=== PATIENT | female | born 1960 | race Caucasian/White ===

== ENCOUNTER → 2018-02-10 | Outpatient (CLI) | payer OTHER ==
[2018-02-10 09:52] LABS: ALBUMIN 3.8 GM/DL (3.2-5.2); ALBUMIN/GLOBULIN RATIO 1.03 (1.00-1.93); ALKALINE PHOSPHATASE 117 U/L (45-117); ALT/SGPT 63 U/L (12-78); ANION GAP 6 MEQ/L (8-16); AST/SGOT 41 U/L (7-37); BILIRUBIN,TOTAL 0.5 MG/DL (0.2-1.0); BLOOD UREA NITROGEN 23 MG/DL (7-18); CARBON DIOXIDE LEVEL 28 MEQ/L (21-32); CHLORIDE LEVEL 106 MEQ/L (98-107); CHOLESTEROL LEVEL 221 MG/DL (<200); CHOLESTEROL RISK RATIO 3.112 (<5); CREATININE FOR GFR 0.89 MG/DL (0.55-1.30); GLOMERULAR FILTRATION RATE > 60.0 (>51); GLUCOSE, FASTING 95 MG/DL (70-100); HDL CHOLESTEROL 71 MG/DL (>40); LDL CHOLESTEROL 131.4 MG/DL (<100); NON-HDL-C 150 MG/DL; POTASSIUM SERUM 4.9 MEQ/L (3.5-5.1); SODIUM LEVEL 140 MEQ/L (136-145); TOTAL PROTEIN 7.5 GM/DL (6.4-8.2); TRIGLYCERIDES LEVEL 93 MG/DL (<150)
== END ==
LOC: M WUC 08:25
DX: E78.5 Hyperlipidemia, unspecified (principal); I10 Essential (primary) hypertension
CPT/HCPCS: 80053

== ENCOUNTER → 2018-08-13 | Outpatient (CLI) | payer OTHER ==
[2018-08-13 13:37] LABS: ALBUMIN/GLOBULIN RATIO 1.18 (1.00-1.93); ALKALINE PHOSPHATASE 89 U/L (45-117); ALT/SGPT 53 U/L (12-78); ANION GAP 8 MEQ/L (8-16); AST/SGOT 37 U/L (7-37); BILIRUBIN,TOTAL 0.5 MG/DL (0.2-1.0); BLOOD UREA NITROGEN 21 MG/DL (7-18); CALCIUM LEVEL 9.3 MG/DL (8.8-10.2); CARBON DIOXIDE LEVEL 27 MEQ/L (21-32); CHLORIDE LEVEL 105 MEQ/L (98-107); CHOLESTEROL LEVEL 229 MG/DL (<200); CHOLESTEROL RISK RATIO 3.754 (<5); CREATININE FOR GFR 0.88 MG/DL (0.55-1.30); GLOMERULAR FILTRATION RATE > 60.0 (>45); GLUCOSE, FASTING 94 MG/DL (70-100); HDL CHOLESTEROL 61 MG/DL (>40); LDL CHOLESTEROL 142 MG/DL (<100); NON-HDL-C 168 MG/DL; POTASSIUM SERUM 5.1 MEQ/L (3.5-5.1); SODIUM LEVEL 140 MEQ/L (136-145); TOTAL PROTEIN 7.4 GM/DL (6.4-8.2); TRIGLYCERIDES LEVEL 130 MG/DL (<150)
== END ==
LOC: M WUC 08:40
DX: E78.5 Hyperlipidemia, unspecified (principal); I10 Essential (primary) hypertension
CPT/HCPCS: 80053

== ENCOUNTER 2018-08-27 04:58 | Observation (INO) | payer OTHER ==
[2018-08-27] MEDS: NS 500 ML IV (06:30)
[2018-08-27] MEDS: ACETAMINOPHEN 325 MG TAB PO (06:51)
[2018-08-27] MEDS: ADACEL/BOOSTRIX VACCINE (DIPHTH/PERTUSS/ACELL/TETANUS)0.5ML SYR (90715) IM (06:52)
[2018-08-27] MEDS: LIDOCAINE 2% W/EPIN INJ 20ML **PRES FREE INJ (07:06)
[2018-08-27 07:22] LABS: BASO % 0.3 % (0.0-1.0); EOS # 0.2 10^3/uL (0.0-0.50); EOS % 1.9 % (0.0-3.0); HEMATOCRIT 35.6 % (36.0-47.0); HEMOGLOBIN 12.1 g/dl (12.0-15.5); IMMATURE GRANULOCYTE % 0.5 % (0-3.0); LYMPH % 23.8 % (24.0-44.0); MEAN CORPUSCULAR HEMOGLOBIN 30.9 pg (27.0-33.0); MONO % 7.8 % (0.0-5.0); NEUTROPHILS # 8.2 10^3/uL (1.8-7.7); NEUTROPHILS % 65.7 % (36.0-66.0); PLATELET COUNT, AUTOMATED 194 10^3/uL (150-450); RED BLOOD COUNT 3.91 10^6/uL (4.00-5.40); RED CELL DISTRIBUTION WIDTH 12.7 % (11.5-14.5); WHITE BLOOD COUNT 12.5 10^3/uL (4.0-10.0)
[2018-08-27 07:26] LABS: INR 1.01; PROTHROMBIN TIME 13.4 SECONDS (12.1-14.4)
[2018-08-27 07:36] LABS: ANION GAP 8 MEQ/L (8-16); BLOOD UREA NITROGEN 20 MG/DL (7-18); CALCIUM LEVEL 8.5 MG/DL (8.8-10.2); CARBON DIOXIDE LEVEL 27 MEQ/L (21-32); CHLORIDE LEVEL 107 MEQ/L (98-107); CPK CREATINE PHOSPHOKINASE 140 U/L (26-192); CREATININE FOR GFR 1.13 MG/DL (0.55-1.30); GLOMERULAR FILTRATION RATE 52.3 (>45); GLUCOSE, FASTING 177 MG/DL (70-100); MAGNESIUM LEVEL 1.8 MG/DL (1.8-2.4); MB/CK RELATIVE INDEX 1.43 (< OR =4); POTASSIUM SERUM 4.6 MEQ/L (3.5-5.1); SODIUM LEVEL 142 MEQ/L (136-145); THYROID STIMULATING HORMONE 0.242 uIU/ML (0.358-3.740); TROPONIN I < 0.02 NG/ML (< 0.10)
[2018-08-27 07:42] LABS: VENOUS BASE EXCESS -1.2 (-2.0-2.0); VENOUS HCO3 22.2 MEQ/L (23.0-27.0); VENOUS PARTIAL PRESSURE CO2 33.1 mmHg (38.0-50.0); VENOUS PARTIAL PRESSURE O2 61.5 mmHg (30.0-50.0); VENOUS PH 7.444 UNITS (7.330-7.430); VENOUS STANDARD HCO3 23.3 MEQ/L; VENOUS TOTAL CO2 23.2 MEQ/L (24.0-28.0)
[2018-08-27 07:55] LABS: D-DIMER QUANT 413.6 ng/ml (<500)
[2018-08-27 08:00] LABS: KETONE, URINE AUTO RFX TRACE mg/dL (NEGATIVE); NITRITE, URINE AUTO RFX NEGATIVE (NEGATIVE); RBC, URINE AUTO RFX 32 /HPF (0-3); SPECIFIC GRAVITY UR AUTO RFX 1.013 (1.002-1.035); SQUAM EPITHELIAL CELL UR AURFX 0 /HPF (0-6)
[2018-08-27 08:10] LABS: LEUKOCYTE ESTERASE UR AUTO RFX 3+ (NEGATIVE); WBC, URINE AUTO RFX TNTC /HPF (0-3)
[2018-08-27] MEDS: CIPROFLOXACIN 500 MG TAB PO ×2 (08:34→18:36)
[2018-08-27] MEDS ORDERED: ONDANSETRON 4MG/2ML VIAL (J2405) IV (08:45)
[2018-08-27] MEDS ORDERED: SLF 3 ML SYR IV (11:00)
[2018-08-27] MEDS: OMEPRAZOLE 20 MG CAP PO (12:17)
[2018-08-27] MEDS: ATORVASTATIN 10 MG TAB PO (12:17)
[2018-08-27] MEDS: LISINOPRIL 10 MG TAB PO (12:17)
[2018-08-27] MEDS: ENOXAPARIN 40 MG/0.4 ML SYRINGE (J1650) SC (12:18)
[2018-08-27 12:47] LABS: CPK CREATINE PHOSPHOKINASE 146 U/L (26-192); MB/CK RELATIVE INDEX 0.75 (< OR =4); TROPONIN I < 0.02 NG/ML (< 0.10)
[2018-08-27] MEDS: SLF 3 ML SYR IV ×2 (14:00→21:03)
[2018-08-27] MEDS: ACETAMINOPHEN TAB 650MG DOSE (2X325MG) PO ×2 (16:32→21:14)
[2018-08-27 20:34] LABS: CPK CREATINE PHOSPHOKINASE 144 U/L (26-192); MB/CK RELATIVE INDEX 0.69 (< OR =4); TROPONIN I < 0.02 NG/ML (< 0.10)
[2018-08-28 05:48] LABS: HEMATOCRIT 33.2 % (36.0-47.0); HEMOGLOBIN 10.8 g/dl (12.0-15.5); MEAN CORPUSCULAR HEMOGLOBIN 30.4 pg (27.0-33.0); MEAN CORPUSCULAR HGB CONC 32.5 g/dl (32.0-36.5); MEAN CORPUSCULAR VOLUME 93.5 fl (80.0-96.0); PLATELET COUNT, AUTOMATED 175 10^3/uL (150-450); RED BLOOD COUNT 3.55 10^6/uL (4.00-5.40); RED CELL DISTRIBUTION WIDTH 13.1 % (11.5-14.5); WHITE BLOOD COUNT 7.4 10^3/uL (4.0-10.0)
[2018-08-28 06:15] LABS: ANION GAP 7 MEQ/L (8-16); BLOOD UREA NITROGEN 13 MG/DL (7-18); CALCIUM LEVEL 8.6 MG/DL (8.8-10.2); CARBON DIOXIDE LEVEL 25 MEQ/L (21-32); CHLORIDE LEVEL 112 MEQ/L (98-107); CREATININE FOR GFR 0.78 MG/DL (0.55-1.30); GLOMERULAR FILTRATION RATE > 60.0 (>45); GLUCOSE, FASTING 100 MG/DL (70-100); POTASSIUM SERUM 4.2 MEQ/L (3.5-5.1); SODIUM LEVEL 144 MEQ/L (136-145)
[2018-08-28] MEDS: CIPROFLOXACIN 500 MG TAB PO (06:35)
[2018-08-28] MEDS: SLF 3 ML SYR IV (06:36)
[2018-08-28] MEDS: ACETAMINOPHEN TAB 650MG DOSE (2X325MG) PO (06:42)
[2018-08-28] MEDS: OMEPRAZOLE 20 MG CAP PO (08:28)
[2018-08-28] MEDS: ENOXAPARIN 40 MG/0.4 ML SYRINGE (J1650) SC (08:28)
[2018-08-28] MEDS: ATORVASTATIN 10 MG TAB PO (08:29)
[2018-08-28] MEDS: LISINOPRIL 10 MG TAB PO (08:29)
== END 2018-08-28 09:23 | disposition home or self-care (01) ==
LOC: M ED 04:58 → M ED INP 08:33 → M PCU 10:08
DX: R55 Syncope and collapse (principal); N39.0 Urinary tract infection, site not specified; S01.00XA Unspecified open wound of scalp, initial encounter; W19.XXXA Unspecified fall, initial encounter; Y92.003 Bedroom of unspecified non-institutional (private) residence as the place of occurrence of the external cause; Y99.9 Unspecified external cause status; E78.5 Hyperlipidemia, unspecified; I10 Essential (primary) hypertension; K21.9 Gastro-esophageal reflux disease without esophagitis; Z79.899 Other long term (current) drug therapy; Y93.89 Activity, other specified
CPT/HCPCS: 90715

== ENCOUNTER → 2019-02-14 | Outpatient (REF) | payer OTHER ==
[~2019-02-14] MED LIST: ATOR1TAB19 PO; CIPR-249 PO; LISI10TA4 PO; NEXI10GR PO
[2019-02-14 12:26] LABS: ALBUMIN 3.8 GM/DL (3.2-5.2); ALT/SGPT 58 U/L (12-78); BILIRUBIN,TOTAL 0.5 MG/DL (0.2-1.0); BLOOD UREA NITROGEN 19 MG/DL (7-18); CALCIUM LEVEL 8.6 MG/DL (8.8-10.2); CARBON DIOXIDE LEVEL 29 MEQ/L (21-32); CHLORIDE LEVEL 104 MEQ/L (98-107); CHOLESTEROL LEVEL 191 MG/DL (<200); CREATININE FOR GFR 0.84 MG/DL (0.55-1.30); GLOMERULAR FILTRATION RATE > 60.0 (>45); GLUCOSE, FASTING 88 MG/DL (70-100); HDL CHOLESTEROL 57 MG/DL (>40); LDL CHOLESTEROL 116 MG/DL (<100); NON-HDL-C 134 MG/DL; POTASSIUM SERUM 4.5 MEQ/L (3.5-5.1); SODIUM LEVEL 139 MEQ/L (136-145); TOTAL PROTEIN 7.4 GM/DL (6.4-8.2); TRIGLYCERIDES LEVEL 92 MG/DL (<150)
== END ==
LOC: M LABDRAW1 11:46
PROVIDERS: ATTEND Internal Medicine
DX: E78.5 Hyperlipidemia, unspecified (principal); I10 Essential (primary) hypertension

== ENCOUNTER → 2019-08-22 | Outpatient (REF) | payer BC ==
[2019-08-22 12:57] LABS: ALBUMIN 3.8 GM/DL (3.2-5.2); ALT/SGPT 101 U/L (12-78); BILIRUBIN,TOTAL 0.5 MG/DL (0.2-1.0); BLOOD UREA NITROGEN 20 MG/DL (7-18); CALCIUM LEVEL 9.2 MG/DL (8.8-10.2); CARBON DIOXIDE LEVEL 29 MEQ/L (21-32); CHLORIDE LEVEL 104 MEQ/L (98-107); CHOLESTEROL LEVEL 220 MG/DL (<200); CHOLESTEROL RISK RATIO 3.055 (<5); CREATININE FOR GFR 0.83 MG/DL (0.55-1.30); GLOMERULAR FILTRATION RATE > 60.0 (>45); GLUCOSE, FASTING 88 MG/DL (70-100); HDL CHOLESTEROL 72 MG/DL (>40); LDL CHOLESTEROL 130 MG/DL (<100); NON-HDL-C 148 MG/DL; POTASSIUM SERUM 4.4 MEQ/L (3.5-5.1); SODIUM LEVEL 139 MEQ/L (136-145); TOTAL PROTEIN 7.3 GM/DL (6.4-8.2); TRIGLYCERIDES LEVEL 90 MG/DL (<150)
== END ==
LOC: M LABDRAW1 09:49
PROVIDERS: ATTEND Internal Medicine
DX: I10 Essential (primary) hypertension (principal); E78.5 Hyperlipidemia, unspecified

== ENCOUNTER 2019-10-26 20:52 | Emergency (ER) | payer BC ==
[~2019-10-26] VITALS: Ht 154.9 cm; Wt 65.9 kg
[2019-10-26 20:53] VITALS: BP 108/58
[2019-10-26] MEDS ORDERED: KETOROLAC 60 MG/2 ML VIAL (J1885) IM ONE (22:45)
--- NOTE | 2019-10-26 23:09 | REPVR ---
PROCEDURE INFORMATION: Exam: XR Right Shoulder Exam date and time: 10/26/2019 9:28 PM Age: 59 years old Clinical history: Pain; Upper arm; Right; Additional info: Fall injury TECHNIQUE: Imaging protocol: XR Right shoulder. Views: 2 or more views. COMPARISON: No relevant prior studies available. FINDINGS: Bones/joints: Comminuted fracture right humeral neck. Otherwise unremarkable. Soft tissues: Calcific peritendinitis. IMPRESSION: 1. Comminuted fracture right humeral neck. 2. Calcific peritendinitis. Electronically signed by: Aubrey Jean On 10/26/2019 23:09:08 PM
[2019-10-26] MEDS ORDERED: OXYC1TAB23 PO (23:19)
[2019-10-26] MEDS ORDERED: PERC5TAB12 PO (23:22)
[2019-10-26] MEDS ORDERED: OXYCODONE/APAP 5MG/325MG(BULK FOR ED) 1 TABLET PO ONE (23:30)
[2019-10-26] MEDS ORDERED: traMADol 50 MG TAB PO ONE (23:30)
--- NOTE | 2019-10-27 08:09 | REP ---
Left knee series: Four views. History: Injury in a fall. Findings: Four views of the left knee are presented. No sunrise view is included. There is no evidence of fracture subluxation or joint effusion. Mild diffuse osteopenia. Impression: No acute bony abnormality. Four view knee series. Electronically Signed by Ruben Carr MD 10/27/2019 08:01 A
== END 2019-10-27 00:01 | disposition home or self-care (01) ==
LOC: M ED 20:52
DX: S42.301A Unspecified fracture of shaft of humerus, right arm, initial encounter for closed fracture (principal); W19.XXXA Unspecified fall, initial encounter; Y92.099 Unspecified place in other non-institutional residence as the place of occurrence of the external cause; Y93.89 Activity, other specified; Y99.9 Unspecified external cause status; M75.31 Calcific tendinitis of right shoulder; K21.9 Gastro-esophageal reflux disease without esophagitis; I10 Essential (primary) hypertension; E78.5 Hyperlipidemia, unspecified; R55 Syncope and collapse; Z87.820 Personal history of traumatic brain injury

== ENCOUNTER → 2019-10-27 | Outpatient (CLI) | payer BC ==
[~2019-10-27] MED LIST changes: +OXYC1TAB23 PO; +PERC5TAB12 PO
--- NOTE | 2019-10-27 12:52 | REP ---
CT right shoulder without contrast: History: Displaced fracture evaluation. Comparison shoulder radiographs are from October 26, 2019. Technique: Helical scanning is acquired and 3 mm axial images are reformatted. Coronal and sagittal multiplanar re-formation images are generated. CT findings: There is a somewhat comminuted fracture of the surgical neck of the right humerus with impaction but no displacement or angulation. Fragments include the greater tuberosity. There is dystrophic periarticular soft-tissue calcification adjacent to the greater tuberosity as well consistent with preexisting calcific tendonitis or bursitis. The glenohumeral articulation is normally aligned. The fracture extends to the medial aspect of the proximal humerus just below the articular cortical margin of the humeral head. There is normal alignment of the acromioclavicular joint with mild spurring. No scapular or clavicular fracture is appreciated. Impression: Comminuted and somewhat impacted fracture of the proximal humerus. Periarticular soft tissue calcific deposits. Mild AC joint osteoarthritis. Electronically Signed by Ruben Carr MD 10/27/2019 01:11 P
== END ==
LOC: M RAD 11:43
PROVIDERS: ATTEND Orthopaedic Surgery Hand Surgery
DX: S42.221A 2-part displaced fracture of surgical neck of right humerus, initial encounter for closed fracture (principal); W18.30XA Fall on same level, unspecified, initial encounter; Y92.009 Unspecified place in unspecified non-institutional (private) residence as the place of occurrence of the external cause

== ENCOUNTER → 2021-01-29 | Outpatient (CLI) | payer OTHER ==
[~2021-01-29] MED LIST changes: +LISI10TA22 PO; -LISI10TA4 PO
--- NOTE | 2021-01-29 09:16 | REPMRS ---
Patient History The patient states she had a clinical breast exam in April 2020. Family history of breast cancer at age 50 or over in paternal aunt, breast cancer at age 50 or over in maternal aunt, colorectal cancer at age 50 or over in maternal grandmother, colorectal cancer at age 50 or over in paternal grandmother. No Hormone Replacement Therapy Digital Woman Screen Mammo: January 29, 2021 - Exam #: [id number] Bilateral CC and MLO view(s) were taken. Technologist: RT Red Prior study comparison: May 18, 2019, bilateral digital mammo screening bilat, performed at [facility]. April 27, 2018, bilateral digital woman screen mammo performed at [facility]. 2016, bilateral digital mammo screening bilat, performed at [facility]. FINDINGS: There are scattered fibroglandular densities. The Volpara volumetric breast density category is:B. There has been no change in the appearance of the mammogram from the prior studies. There is a mild amount of scattered fibroglandular density which is fairly symmetric. There is no interval development of dominant mass, architectural distortion, or grouped microcalcification suggestive of malignancy. 3-D tomosynthesis shows no additional findings. Assessment: BI-RADS/ACR category 1 mammogram. Negative Mammogram. Recommendation Routine screening mammogram of both breasts in 1 year (for women over age 40). This patient's [facility] Lifetime Breast Cancer Risk is estimated at 11.1 %. This mammogram was interpreted with the aid of an FDA-approved computer-aided dectection system. Electronically Signed By: Michael Carr MD 01/29/21 0916
== END ==
LOC: M WHC 08:04
PROVIDERS: ATTEND Internal Medicine
DX: Z12.31 Encounter for screening mammogram for malignant neoplasm of breast (principal)

== ENCOUNTER → 2022-09-15 | Outpatient (CLI) | payer BC, OTHER ==
[~2022-09-15] MED LIST changes: +ATOR1TAB21 PO; +CALC250T PO; +GARL1000 PO; +HM C500T4 PO; +NEXI40CA PO; +VITA400T26 PO; +VITA500075 PO; +VITMTA PO
== END ==
LOC: M LABSMTC 09:10
PROVIDERS: ATTEND Anesthesiology
DX: Z01.818 Encounter for other preprocedural examination (principal); Z11.52 Encounter for screening for COVID-19

== ENCOUNTER 2022-09-18 09:54 | Day surgery (SDC) | payer BC ==
[~2022-09-18] VITALS: Ht 154.9 cm; Wt 61.2 kg
[~2022-09-18 09:54] MED LIST changes: +NS 1,000 ML IV ONE
[2022-09-18] MEDS ORDERED: GLYCOPYRROLATE INJ 0.2 MG/ML 2 ML VIAL As Ordered ONE (10:39)
[2022-09-18] MEDS ORDERED: propofoL 200 MG/20 ML VIAL As Ordered ONE (10:40)
[2022-09-18] MEDS ORDERED: LIDOCAINE 2% 100MG/5ML SDV (FOR ANES.) As Ordered ONE (10:40)
[2022-09-18 11:54] VITALS: BP 132/60
== END 2022-09-18 12:00 | disposition home or self-care (01) ==
LOC: M OPP 09:54
PROVIDERS: ATTEND Surgery
DX: Z12.11 Encounter for screening for malignant neoplasm of colon (principal); Z79.02 Long term (current) use of antithrombotics/antiplatelets; Z79.899 Other long term (current) drug therapy; E78.00 Pure hypercholesterolemia, unspecified; Z87.19 Personal history of other diseases of the digestive system; Z87.448 Personal history of other diseases of urinary system

== ENCOUNTER → 2023-02-10 | Outpatient (CLI) | payer BC ==
[~2023-02-10] MED LIST changes: -NS 1,000 ML IV ONE
== END ==
LOC: M WHC 07:20
PROVIDERS: ATTEND Internal Medicine
DX: Z12.31 Encounter for screening mammogram for malignant neoplasm of breast (principal)

== ENCOUNTER → 2025-02-23 | Outpatient (CLI) | payer MEDICARE | LOC: M WHC 07:06 | PROVIDERS: ATTEND Internal Medicine | DX: Z12.31 Encounter for screening mammogram for malignant neoplasm of breast (principal) ==